=== PATIENT | female | born 1950 | race Caucasian/White ===

== ENCOUNTER → 2016-11-13 10:15 | Outpatient (CLI) | payer MEDICARE ==
[2015-03-10 09:26] VITALS: BMI 30.4
[~2016-11-13 10:15] MED LIST: ADDERALL 30 MG30 MG PO; ADDERALL XR 3030 MG PO; ASPIRIN81 MG PO; CLIMARA 0.0.075 MG/P; COLACE100 MG PO; COUMADIN2.5 MG PO; FORTEO PEN20 MCG INJ; GLUCOPHAGE XR750 MG; HYDROCODONE-APA1 TAB PO; IBUPROFEN800 MG PO; INVOKANA300 MG PO; K-DUR20 MEQ PO; LEVEMIR100 U/M1 INJ; LEVITRA20 MG PO; LIPITOR40 MG PO; LISINOPRIL2.5 MG PO; LOPRESSOR25 MG PO; NOVOLIN R100 U/ML SQ; PREDNISONE20 MG PO; PRINIVIL10 MG PO; PROMETRIUM100 MG; SENOKOT-S TABLE1 TAB PO; VICTOZA0.6 MG/0.1 SQ; XANAX0.5 MG PO; ZOLOFT100 MG PO
[2016-11-13 11:03] LABS: INR 1.82 (0.85-1.17)
== END | disposition home or self-care (01) ==
LOC: D.LAB 10:15
PROVIDERS: Internal Medicine Cardiovascular Disease
DX: Z51.81 Encounter for therapeutic drug level monitoring (principal); Z79.01 Long term (current) use of anticoagulants

== ENCOUNTER → 2016-11-28 11:36 | Outpatient (CLI) | payer MEDICARE, MEDICAID ==
[2015-03-10 09:26] VITALS: BMI 30.4
[2016-11-28 12:24] LABS: INR 2.29 (0.85-1.17); PROTIME 25.3 SECONDS (11.6-15.0)
== END | disposition home or self-care (01) ==
LOC: D.LAB 11:36
PROVIDERS: Internal Medicine Cardiovascular Disease
DX: Z51.81 Encounter for therapeutic drug level monitoring (principal); Z79.01 Long term (current) use of anticoagulants

== ENCOUNTER → 2016-12-06 17:00 | Outpatient (CLI) | payer MEDICARE ==
[2015-03-10 09:26] VITALS: BMI 30.4
== END | disposition home or self-care (01) ==
LOC: D.MAMMO 13:45
DX: Z12.31 Encounter for screening mammogram for malignant neoplasm of breast (principal)

== ENCOUNTER 2016-12-17 14:20 | Emergency (ER) | payer MEDICARE, MEDICAID ==
[2015-03-10 09:26] VITALS: BMI 30.4
== END 2016-12-17 19:23 | disposition left against medical advice (07) ==
LOC: D.ER 14:20
DX: R50.9 Fever, unspecified (principal); R00.0 Tachycardia, unspecified; I49.3 Ventricular premature depolarization; E11.9 Type 2 diabetes mellitus without complications; Z79.4 Long term (current) use of insulin

== ENCOUNTER → 2017-01-01 11:40 | Outpatient (CLI) | payer MEDICARE, MEDICAID ==
[2015-03-10 09:26] VITALS: BMI 30.4
[2017-01-01 12:51] LABS: PROTIME 31.4 SECONDS (11.6-15.0)
== END | disposition home or self-care (01) ==
LOC: D.LAB 11:40
PROVIDERS: Internal Medicine Cardiovascular Disease
DX: Z51.81 Encounter for therapeutic drug level monitoring (principal); Z79.01 Long term (current) use of anticoagulants

== ENCOUNTER → 2017-01-22 11:51 | Outpatient (CLI) | payer MEDICARE, MEDICAID ==
[2015-03-10 09:26] VITALS: BMI 30.4
[2017-01-22 12:23] LABS: INR 1.43 (0.85-1.17); PROTIME 17.3 SECONDS (11.6-15.0)
== END | disposition home or self-care (01) ==
LOC: D.LAB 11:51
PROVIDERS: Internal Medicine Cardiovascular Disease
DX: Z51.81 Encounter for therapeutic drug level monitoring (principal); Z79.01 Long term (current) use of anticoagulants

== ENCOUNTER → 2017-01-30 11:19 | Outpatient (CLI) | payer MEDICARE, MEDICAID ==
[2015-03-10 09:26] VITALS: BMI 30.4
[2017-01-30 12:02] LABS: INR 2.29 (0.85-1.17); PROTIME 25.3 SECONDS (11.6-15.0)
== END | disposition home or self-care (01) ==
LOC: D.LAB 11:19
PROVIDERS: Internal Medicine Cardiovascular Disease
DX: Z51.81 Encounter for therapeutic drug level monitoring (principal); Z79.01 Long term (current) use of anticoagulants

== ENCOUNTER → 2017-02-06 10:23 | Outpatient (CLI) | payer MEDICARE, MEDICAID ==
[2015-03-10 09:26] VITALS: BMI 30.4
[2017-02-06 10:51] LABS: INR 2.36 (0.85-1.17); PROTIME 25.9 SECONDS (11.6-15.0)
== END | disposition home or self-care (01) ==
LOC: D.LAB 10:23
PROVIDERS: Internal Medicine Cardiovascular Disease
DX: Z51.81 Encounter for therapeutic drug level monitoring (principal); Z79.01 Long term (current) use of anticoagulants

== ENCOUNTER → 2017-03-07 08:43 | Outpatient (CLI) | payer MEDICARE, MEDICAID ==
[2015-03-10 09:26] VITALS: BMI 30.4
[2017-03-07 09:09] LABS: INR 3.29 (0.85-1.17); PROTIME 33.8 SECONDS (11.6-15.0)
== END | disposition home or self-care (01) ==
LOC: D.LAB 08:43
PROVIDERS: Internal Medicine Cardiovascular Disease
DX: Z51.81 Encounter for therapeutic drug level monitoring (principal); Z79.01 Long term (current) use of anticoagulants

== ENCOUNTER → 2017-04-10 10:44 | Outpatient (CLI) | payer MEDICARE, MEDICAID ==
[2015-03-10 09:26] VITALS: BMI 30.4
[2017-04-10 11:29] LABS: INR 2.56 (0.85-1.17); PROTIME 27.6 SECONDS (11.6-15.0)
== END | disposition home or self-care (01) ==
LOC: D.LAB 10:44
PROVIDERS: Internal Medicine Cardiovascular Disease
DX: Z51.81 Encounter for therapeutic drug level monitoring (principal); Z79.01 Long term (current) use of anticoagulants

== ENCOUNTER → 2017-05-09 10:01 | Outpatient (CLI) | payer MEDICARE, MEDICAID ==
[2015-03-10 09:26] VITALS: BMI 30.4
[2017-05-09 10:38] LABS: INR 2.42 (0.85-1.17); PROTIME 26.5 SECONDS (11.6-15.0)
== END | disposition home or self-care (01) ==
LOC: D.LAB 10:01
PROVIDERS: Internal Medicine Cardiovascular Disease
DX: Z51.81 Encounter for therapeutic drug level monitoring (principal); Z79.01 Long term (current) use of anticoagulants

== ENCOUNTER → 2017-06-07 10:08 | Outpatient (CLI) | payer MEDICARE, MEDICAID ==
[2015-03-10 09:26] VITALS: BMI 30.4
[2017-06-07 10:44] LABS: INR 2.42 (0.85-1.17); PROTIME 26.5 SECONDS (11.6-15.0)
== END | disposition home or self-care (01) ==
LOC: D.LAB 10:08
PROVIDERS: Internal Medicine Cardiovascular Disease
DX: Z51.81 Encounter for therapeutic drug level monitoring (principal); Z79.01 Long term (current) use of anticoagulants

== ENCOUNTER → 2017-07-09 08:19 | Outpatient (CLI) | payer MEDICARE, MEDICAID ==
[2015-03-10 09:26] VITALS: BMI 30.4
[2017-07-09 09:04] LABS: INR 3.39 (0.85-1.17); PROTIME 34.6 SECONDS (11.6-15.0)
== END | disposition home or self-care (01) ==
LOC: D.LAB 08:19
PROVIDERS: Internal Medicine Cardiovascular Disease
DX: Z51.81 Encounter for therapeutic drug level monitoring (principal); Z79.01 Long term (current) use of anticoagulants

== ENCOUNTER → 2017-08-06 08:51 | Outpatient (CLI) | payer MEDICARE, MEDICAID ==
[2015-03-10 09:26] VITALS: BMI 30.4
[2017-08-06 09:56] LABS: INR 3.02 (0.85-1.17); PROTIME 31.6 SECONDS (11.6-15.0)
== END | disposition home or self-care (01) ==
LOC: D.LAB 08:51
PROVIDERS: Internal Medicine Cardiovascular Disease
DX: Z51.81 Encounter for therapeutic drug level monitoring (principal); Z79.01 Long term (current) use of anticoagulants

== ENCOUNTER → 2017-09-06 08:51 | Outpatient (CLI) | payer MEDICARE, MEDICAID ==
[2015-03-10 09:26] VITALS: BMI 30.4
[2017-09-06 09:22] LABS: INR 2.61 (0.85-1.17); PROTIME 28.1 SECONDS (11.6-15.0)
== END | disposition home or self-care (01) ==
LOC: D.LAB 08:51
PROVIDERS: Internal Medicine Cardiovascular Disease
DX: Z51.81 Encounter for therapeutic drug level monitoring (principal); Z79.01 Long term (current) use of anticoagulants

== ENCOUNTER → 2017-10-09 10:11 | Outpatient (CLI) | payer MEDICARE, MEDICAID ==
[2015-03-10 09:26] VITALS: BMI 30.4
[2017-10-09 10:44] LABS: INR 2.84 (0.85-1.17); PROTIME 29.2 SECONDS (11.6-15.0)
== END | disposition home or self-care (01) ==
LOC: D.LAB 10:11
PROVIDERS: Internal Medicine Cardiovascular Disease
DX: Z51.81 Encounter for therapeutic drug level monitoring (principal); Z79.01 Long term (current) use of anticoagulants

== ENCOUNTER → 2017-11-06 08:53 | Outpatient (CLI) | payer MEDICARE, MEDICAID ==
[2015-03-10 09:26] VITALS: BMI 30.4
[2017-11-06 09:21] LABS: INR 4.56 (0.85-1.17); PROTIME 42.3 SECONDS (11.6-15.0)
== END | disposition home or self-care (01) ==
LOC: D.LAB 08:53
PROVIDERS: Internal Medicine Cardiovascular Disease
DX: Z51.81 Encounter for therapeutic drug level monitoring (principal); Z79.01 Long term (current) use of anticoagulants

== ENCOUNTER → 2017-11-14 09:26 | Outpatient (CLI) | payer MEDICARE, MEDICAID ==
[2015-03-10 09:26] VITALS: BMI 30.4
[2017-11-14 10:08] LABS: INR 4.01 (0.85-1.17); PROTIME 38.2 SECONDS (11.6-15.0)
== END | disposition home or self-care (01) ==
LOC: D.LAB 09:26
PROVIDERS: Internal Medicine Cardiovascular Disease
DX: Z51.81 Encounter for therapeutic drug level monitoring (principal); Z79.02 Long term (current) use of antithrombotics/antiplatelets

== ENCOUNTER → 2017-11-21 10:05 | Outpatient (CLI) | payer MEDICARE, MEDICAID ==
[2015-03-10 09:26] VITALS: BMI 30.4
[2017-11-21 10:44] LABS: INR 3.01 (0.85-1.17); PROTIME 30.5 SECONDS (11.6-15.0)
== END | disposition home or self-care (01) ==
LOC: D.LAB 10:05
PROVIDERS: Internal Medicine Cardiovascular Disease
DX: Z51.81 Encounter for therapeutic drug level monitoring (principal); Z79.01 Long term (current) use of anticoagulants

== ENCOUNTER → 2017-12-05 09:53 | Outpatient (CLI) | payer MEDICARE, MEDICAID ==
[2015-03-10 09:26] VITALS: BMI 30.4
[2017-12-05 10:21] LABS: INR 3.32 (0.85-1.17); PROTIME 32.9 SECONDS (11.6-15.0)
== END | disposition home or self-care (01) ==
LOC: D.LAB 09:53
PROVIDERS: Internal Medicine Cardiovascular Disease
DX: Z51.81 Encounter for therapeutic drug level monitoring (principal); Z79.01 Long term (current) use of anticoagulants

== ENCOUNTER → 2018-01-08 10:12 | Outpatient (CLI) | payer MEDICARE, MEDICAID ==
[2015-03-10 09:26] VITALS: BMI 30.4
[2018-01-08 10:36] LABS: INR 2.53 (0.85-1.17); PROTIME 26.6 SECONDS (11.6-15.0)
== END | disposition home or self-care (01) ==
LOC: D.LAB 10:12
PROVIDERS: Internal Medicine Cardiovascular Disease
DX: Z51.81 Encounter for therapeutic drug level monitoring (principal); Z79.01 Long term (current) use of anticoagulants

== ENCOUNTER → 2018-02-06 10:03 | Outpatient (CLI) | payer MEDICARE, MEDICAID ==
[2015-03-10 09:26] VITALS: BMI 30.4
[2018-02-06 10:55] LABS: INR 2.4 (0.85-1.17); PROTIME 25.5 SECONDS (11.6-15.0)
== END | disposition home or self-care (01) ==
LOC: D.LAB 10:03
PROVIDERS: Internal Medicine Cardiovascular Disease
DX: Z51.81 Encounter for therapeutic drug level monitoring (principal); Z79.01 Long term (current) use of anticoagulants

== ENCOUNTER → 2018-03-07 10:28 | Outpatient (CLI) | payer MEDICARE, MEDICAID ==
[2015-03-10 09:26] VITALS: BMI 30.4
[2018-03-07 11:29] LABS: INR 3.78 (0.85-1.17); PROTIME 36.5 SECONDS (11.6-15.0)
== END | disposition home or self-care (01) ==
LOC: D.LAB 10:28
PROVIDERS: Internal Medicine Cardiovascular Disease
DX: Z51.81 Encounter for therapeutic drug level monitoring (principal); Z79.01 Long term (current) use of anticoagulants

== ENCOUNTER → 2018-04-09 08:52 | Outpatient (CLI) | payer MEDICARE, MEDICAID ==
[2015-03-10 09:26] VITALS: BMI 30.4
[2018-04-09 09:54] LABS: INR 2.35 (0.85-1.17); PROTIME 25.1 SECONDS (11.6-15.0)
== END | disposition home or self-care (01) ==
LOC: D.LAB 08:52
PROVIDERS: Internal Medicine Cardiovascular Disease
DX: Z51.81 Encounter for therapeutic drug level monitoring (principal); Z79.01 Long term (current) use of anticoagulants

== ENCOUNTER → 2018-05-07 09:59 | Outpatient (CLI) | payer MEDICARE, MEDICAID ==
[2015-03-10 09:26] VITALS: BMI 30.4
[2018-05-07 10:36] LABS: PROTIME 46.9 SECONDS (11.6-15.0)
[2018-05-07 10:50] LABS: INR 5.21 (0.85-1.17)
== END | disposition home or self-care (01) ==
LOC: D.LAB 09:59
PROVIDERS: Internal Medicine Cardiovascular Disease
DX: Z51.81 Encounter for therapeutic drug level monitoring (principal); Z79.01 Long term (current) use of anticoagulants

== ENCOUNTER → 2018-05-09 09:55 | Outpatient (CLI) | payer MEDICARE, MEDICAID ==
[2015-03-10 09:26] VITALS: BMI 30.4
[2018-05-09 10:36] LABS: PROTIME 28.2 SECONDS (11.6-15.0)
[2018-05-09 10:37] LABS: INR 2.73 (0.85-1.17)
== END | disposition home or self-care (01) ==
LOC: D.LAB 09:55
PROVIDERS: Internal Medicine Cardiovascular Disease
DX: Z51.81 Encounter for therapeutic drug level monitoring (principal); Z79.01 Long term (current) use of anticoagulants

== ENCOUNTER → 2018-05-23 12:51 | Outpatient (CLI) | payer MEDICARE, MEDICAID ==
[2015-03-10 09:26] VITALS: BMI 30.4
[2018-05-23 13:28] LABS: INR 4.53 (0.85-1.17); PROTIME 42.1 SECONDS (11.6-15.0)
== END | disposition home or self-care (01) ==
LOC: D.LAB 12:51
PROVIDERS: Internal Medicine Cardiovascular Disease
DX: Z51.81 Encounter for therapeutic drug level monitoring (principal); Z79.01 Long term (current) use of anticoagulants

== ENCOUNTER → 2018-06-13 10:09 | Outpatient (CLI) | payer MEDICARE, MEDICAID ==
[2015-03-10 09:26] VITALS: BMI 30.4
[2018-06-13 10:49] LABS: INR 2.23 (0.85-1.17); PROTIME 24.1 SECONDS (11.6-15.0)
== END | disposition home or self-care (01) ==
LOC: D.LAB 10:09
PROVIDERS: Internal Medicine Cardiovascular Disease
DX: Z51.81 Encounter for therapeutic drug level monitoring (principal); Z79.01 Long term (current) use of anticoagulants

== ENCOUNTER → 2018-06-27 09:51 | Outpatient (CLI) | payer MEDICARE, MEDICAID ==
[2015-03-10 09:26] VITALS: BMI 30.4
[2018-06-27 11:04] LABS: INR 3.16 (0.85-1.17); PROTIME 31.7 SECONDS (11.6-15.0)
== END | disposition home or self-care (01) ==
LOC: D.LAB 09:51
PROVIDERS: Internal Medicine Cardiovascular Disease
DX: Z51.81 Encounter for therapeutic drug level monitoring (principal); Z79.01 Long term (current) use of anticoagulants

== ENCOUNTER → 2018-07-25 08:28 | Outpatient (CLI) | payer MEDICARE, MEDICAID ==
[2015-03-10 09:26] VITALS: BMI 30.4
[2018-07-25 09:07] LABS: INR 2.44 (0.85-1.17); PROTIME 25.8 SECONDS (11.6-15.0)
== END | disposition home or self-care (01) ==
LOC: D.LAB 08:28
PROVIDERS: Internal Medicine Cardiovascular Disease
DX: Z51.81 Encounter for therapeutic drug level monitoring (principal); Z79.01 Long term (current) use of anticoagulants

== ENCOUNTER → 2018-08-22 10:01 | Outpatient (CLI) | payer MEDICARE, MEDICAID ==
[2015-03-10 09:26] VITALS: BMI 30.4
[2018-08-22 10:42] LABS: INR 1.78 (0.85-1.17); PROTIME 20.2 SECONDS (11.6-15.0)
== END | disposition home or self-care (01) ==
LOC: D.LAB 10:01
PROVIDERS: Internal Medicine Cardiovascular Disease
DX: Z51.81 Encounter for therapeutic drug level monitoring (principal); Z79.01 Long term (current) use of anticoagulants

== ENCOUNTER → 2018-09-29 09:28 | Outpatient (CLI) | payer MEDICARE, MEDICAID ==
[2015-03-10 09:26] VITALS: BMI 30.4
[2018-09-29 10:52] LABS: INR 1.39 (0.85-1.17); PROTIME 16.8 SECONDS (11.6-15.0)
== END | disposition home or self-care (01) ==
LOC: D.LAB 09:28
PROVIDERS: Internal Medicine Cardiovascular Disease
DX: Z51.81 Encounter for therapeutic drug level monitoring (principal); Z79.01 Long term (current) use of anticoagulants

== ENCOUNTER → 2018-11-07 10:49 | Outpatient (CLI) | payer MEDICARE, MEDICAID ==
[2015-03-10 09:26] VITALS: BMI 30.4
[2018-11-07 11:53] LABS: INR 1.93 (0.85-1.17); PROTIME 21.4 SECONDS (11.6-15.0)
== END | disposition home or self-care (01) ==
LOC: D.LAB 10:49
PROVIDERS: Internal Medicine Cardiovascular Disease
DX: Z51.81 Encounter for therapeutic drug level monitoring (principal); Z79.01 Long term (current) use of anticoagulants

== ENCOUNTER → 2018-12-11 10:26 | Outpatient (CLI) | payer MEDICARE, MEDICAID ==
[2015-03-10 09:26] VITALS: BMI 30.4
[2018-12-11 11:04] LABS: INR 1.88 (0.85-1.17)
== END | disposition home or self-care (01) ==
LOC: D.LAB 10:26
PROVIDERS: Internal Medicine Cardiovascular Disease
DX: Z51.81 Encounter for therapeutic drug level monitoring (principal); Z79.01 Long term (current) use of anticoagulants

== ENCOUNTER → 2018-12-22 10:31 | Outpatient (CLI) | payer MEDICARE, MEDICAID ==
[2015-03-10 09:26] VITALS: BMI 30.4
[2018-12-22 11:13] LABS: INR 2.54 (0.85-1.17); PROTIME 26.6 SECONDS (11.6-15.0)
== END | disposition home or self-care (01) ==
LOC: D.LAB 10:31
PROVIDERS: Internal Medicine Cardiovascular Disease
DX: Z51.81 Encounter for therapeutic drug level monitoring (principal); Z79.01 Long term (current) use of anticoagulants

== ENCOUNTER → 2019-01-02 12:11 | Outpatient (CLI) | payer MEDICARE, MEDICAID ==
[2015-03-10 09:26] VITALS: BMI 30.4
[2019-01-02 12:52] LABS: INR 2.53 (0.85-1.17); PROTIME 26.6 SECONDS (11.6-15.0)
== END | disposition home or self-care (01) ==
LOC: D.LAB 12:11
PROVIDERS: Internal Medicine Cardiovascular Disease
DX: Z51.81 Encounter for therapeutic drug level monitoring (principal); Z79.01 Long term (current) use of anticoagulants

== ENCOUNTER → 2019-01-27 10:27 | Outpatient (CLI) | payer MEDICARE, MEDICAID ==
[2015-03-10 09:26] VITALS: BMI 30.4
[2019-01-27 10:51] LABS: INR 3.7 (0.85-1.17); PROTIME 35.9 SECONDS (11.6-15.0)
== END | disposition home or self-care (01) ==
LOC: D.LAB 10:27
PROVIDERS: ATTEND Internal Medicine Cardiovascular Disease
DX: Z51.81 Encounter for therapeutic drug level monitoring (principal); Z79.01 Long term (current) use of anticoagulants

== ENCOUNTER → 2019-03-16 08:26 | Outpatient (CLI) | payer MEDICARE, MEDICAID ==
[2015-03-10 09:26] VITALS: BMI 30.4
[2019-03-16 09:04] LABS: INR 4.11 (0.85-1.17)
== END | disposition home or self-care (01) ==
LOC: D.LAB 08:26
PROVIDERS: ATTEND Internal Medicine Cardiovascular Disease
DX: Z51.81 Encounter for therapeutic drug level monitoring (principal); Z79.01 Long term (current) use of anticoagulants